=== PATIENT | female | born 1950 | race African-American/Black ===

== ENCOUNTER 2024-01-21 09:41 | Inpatient (IN) | payer OTHER, SELFPAY ==
[2024-01-21] MEDS ORDERED: Bisacodyl 10 MG SUPP PR PRN (12:49)
[2024-01-21] MEDS ORDERED: Senokot S 8.6-50 MG TAB PO PRN (12:49)
[2024-01-21] MEDS ORDERED: Bisacodyl 5 MG TAB PO PRN (12:49)
[2024-01-21] MEDS ORDERED: Acetaminophen 500 MG TAB PO PRN (12:59)
[2024-01-21] MEDS: Gabapentin 300 MG CAP PO SCH (13:32)
[2024-01-21] MEDS: Acetaminophen 500 MG TAB PO SCH (13:33)
[2024-01-21] MEDS: Ondansetron ODT 4 MG TAB PO PRN (13:34)
[2024-01-21] MEDS: traMADol HCl 50 MG TAB PO PRN (14:30)
[2024-01-21] MEDS: Melatonin 3 MG TAB PO SCH (16:32)
[2024-01-21] MEDS: Ibuprofen 200 MG TAB PO SCH (17:23)
[2024-01-21] MEDS: Carvedilol 25 MG TAB PO SCH ×2 (17:29→17:43)
[2024-01-21] MEDS: Famotidine 20 MG TAB PO SCH (20:19)
[2024-01-21] MEDS: Dorzolamide HCl 2% Ophth (10 mL) Bottle EA EYE SCH (20:21)
[2024-01-21] MEDS: prednisoLONE 1% Ophth Susp 5 ml Bottle R EYE SCH (20:22)
[2024-01-21] MEDS: Timolol 0.5% Ophth Soln 5 ml Bottle EA EYE SCH (20:25)
[2024-01-21] MEDS: Brimonidine Tartrate 0.2% Ophth Soln 5 ml Bottle EA EYE SCH (20:29)
[2024-01-21] MEDS: Melatonin 3 MG TAB PO PRN (20:33)
[2024-01-22 06:58] LABS: ALT (SGPT) 15 U/L (8-55); AST (SGOT) 13 U/L (5-34); Albumin 3.6 g/dL (3.4-4.8); Alkaline Phosphatase 73 U/L (40-110); Anion Gap 13 mmol/L (10-20); BUN (Urea Nitrogen) 16 mg/dL (9.8-20.1); Bilirubin, Total 0.9 mg/dL (0.2-1.2); Calc. Creatinine Clearance 87 mL/min (70-130); Calcium 9.8 mg/dL (7.8-10.44); Carbon Dioxide 27 mmol/L (23-31); Chloride 101 mmol/L (98-107); Estimated GFR 83; Globulin 3.2 g/dL (2.4-3.5); Glucose 99 mg/dL (83-110); Potassium 3.5 mmol/L (3.5-5.1); Protein, Total 6.8 g/dL (5.8-8.1); Sodium 137 mmol/L (136-145)
[2024-01-22 07:21] LABS: #Basophils 0.1 thou/uL (0.0-0.2); #Eosinphils 0.3 thou/uL (0.0-0.7); #Lymphocytes 2.3 thou/uL (1.20-3.40); #Monocytes 0.7 thou/uL (0.11-0.59); #Neutrophils 5.7 thou/uL (1.40-6.50); %Basophils 1.6 % (0.0-1.0); %Eosinophils 3.4 % (0.0-10.0); %Lymphocytes 25.1 % (21.0-51.0); %Monocytes 7.6 % (0.0-10.0); %Neutrophils 62.3 % (42.0-75.0); Hemoglobin 12.9 g/dL (12.0-16.0); Mean Corpuscular HGB CONC 31.4 g/dL (32.0-36.0); Mean Corpuscular Hemoglobin 27.3 pg (27.0-31.0); Mean Corpuscular Volume 87.1 fl (78.0-98.0); Mean Platelet Volume 9.2 fL (7.4-10.4); Platelet Adequacy Comment Appears Decreased; Platelet Count 110 10x3/uL (130-400); Red Blood Cell (RBC) Count 4.71 mill/uL (4.20-5.40); White Blood Cell (WBC) Count 9.1 10x3/uL (4.8-10.8)
[2024-01-22] MEDS: Calcium Carbonate 600 MG + Vit D TAB PO SCH (07:52)
[2024-01-22] MEDS ORDERED: Amlodipine 10 MG TAB PO SCH (09:00)
[2024-01-22] MEDS ORDERED: Non-Formulary Item 1 EACH (Losartan Potassium [Losartan Potassium] 100 MG Tablet) PO SCH (09:00)
[2024-01-22] MEDS ORDERED: Lidocaine 4% Patch TP SCH (09:00)
[2024-01-22] MEDS: Lidocaine 4% Patch TD SCH (09:47)
[2024-01-22] MEDS: Amlodipine 10 MG TAB PO SCH (09:58)
[2024-01-22] MEDS: Enoxaparin 40 MG (0.4 mL) SYRINGE SC SCH (09:59)
[2024-01-22] MEDS: Polyethylene Glycol 3350 17 GM Packet PO SCH ×2 (09:59→20:25)
[2024-01-22] MEDS: Losartan 50 MG TAB PO SCH (13:20)
[2024-01-22] MEDS ORDERED: Acetaminophen 500 MG TAB PO SCH (14:00)
[2024-01-22] MEDS: Losartan 50 MG TAB ONE (14:12)
[2024-01-22] MEDS: Acetaminophen 500 MG TAB PO SCH (16:36)
[2024-01-22] MEDS: Transdermal Patch Removal TOP SCH (20:32)
[2024-01-23] MEDS: HYDROcodone/Acetaminophen 5/325 mg Tablet PO PRN (14:57)
[2024-01-24 05:59] LABS: #Basophils 0.1 thou/uL (0.0-0.2); #Eosinphils 0.2 thou/uL (0.0-0.7); #Lymphocytes 2.3 thou/uL (1.20-3.40); #Monocytes 0.8 thou/uL (0.11-0.59); #Neutrophils 5.4 thou/uL (1.40-6.50); %Basophils 0.8 % (0.0-1.0); %Eosinophils 2.4 % (0.0-10.0); %Lymphocytes 26.1 % (21.0-51.0); %Monocytes 8.8 % (0.0-10.0); %Neutrophils 61.9 % (42.0-75.0); Hematocrit 41.3 % (36.0-47.0); Hemoglobin 13.4 g/dL (12.0-16.0); Mean Corpuscular HGB CONC 32.4 g/dL (32.0-36.0); Mean Corpuscular Volume 86.4 fl (78.0-98.0); Mean Platelet Volume 8.6 fL (7.4-10.4); Platelet Count 137 10x3/uL (130-400); RBC Distribution Width 11.9 % (11.5-14.5); Red Blood Cell (RBC) Count 4.78 mill/uL (4.20-5.40); White Blood Cell (WBC) Count 8.8 10x3/uL (4.8-10.8)
[2024-01-25] MEDS: HYDROcodone/Acetaminophen 5/325 mg Tablet PO PRN (08:16)
[2024-01-26 14:16] LABS: Bilirubin Negative (Negative); Blood, Urine Negative (Negative); Clarity Clear (Clear); Glucose, Urine (Dipstick) Negative (Negative); Ketone, Urine Negative (Negative); Leukocyte Negative (Negative); Nitrite Negative (Negative); Protein, Urine (Dipstick) 100 mg/dL (Neg-Trace)
[2024-01-26 14:24] LABS: Urine Culture Reflex No No
[2024-01-26 14:41] LABS: CAUTI Indications for Culture Dysuria,urgency,freq; Squamous Epithelial 0-3 HPF (0-3); WBC/HPF 0-3 HPF (0-3)
[2024-01-27] MEDS: Methocarbamol 500 MG TAB PO PRN (16:49)
[2024-01-31 06:17] LABS: #Basophils 0.1 thou/uL (0.0-0.2); #Eosinphils 0.3 thou/uL (0.0-0.7); #Lymphocytes 2.3 thou/uL (1.20-3.40); #Monocytes 0.8 thou/uL (0.11-0.59); #Neutrophils 6.2 thou/uL (1.40-6.50); %Basophils 1.2 % (0.0-1.0); %Eosinophils 2.7 % (0.0-10.0); %Lymphocytes 23.7 % (21.0-51.0); %Monocytes 7.8 % (0.0-10.0); %Neutrophils 64.5 % (42.0-75.0); Hematocrit 40.3 % (36.0-47.0); Hemoglobin 12.8 g/dL (12.0-16.0); Mean Corpuscular HGB CONC 31.7 g/dL (32.0-36.0); Mean Corpuscular Hemoglobin 27.9 pg (27.0-31.0); Mean Corpuscular Volume 87.8 fl (78.0-98.0); Mean Platelet Volume 7.6 fL (7.4-10.4); Platelet Count 208 10x3/uL (130-400); RBC Distribution Width 12.2 % (11.5-14.5); White Blood Cell (WBC) Count 9.7 10x3/uL (4.8-10.8)
[2024-01-31 06:25] LABS: ALT (SGPT) 12 U/L (8-55); AST (SGOT) 10 U/L (5-34); Albumin 3.5 g/dL (3.4-4.8); Alkaline Phosphatase 114 U/L (40-110); Anion Gap 12 mmol/L (10-20); BUN (Urea Nitrogen) 13 mg/dL (9.8-20.1); Bilirubin, Total 0.7 mg/dL (0.2-1.2); Calc. Creatinine Clearance 109 mL/min (70-130); Calcium 9.9 mg/dL (7.8-10.44); Carbon Dioxide 29 mmol/L (23-31); Chloride 101 mmol/L (98-107); Estimated GFR 95; Globulin 2.9 g/dL (2.4-3.5); Glucose 93 mg/dL (83-110); Potassium 3.5 mmol/L (3.5-5.1); Protein, Total 6.4 g/dL (5.8-8.1); Sodium 138 mmol/L (136-145)
[2024-01-31] MEDS: Ibuprofen 200 MG TAB ONE ×2 (12:28→17:29)
[2024-01-31] MEDS: valACYclovir 500 MG TAB PO SCH (15:57)
[2024-02-01] MEDS: Ibuprofen 200 MG TAB ONE (07:55)
[2024-02-01] MEDS: HYDROcodone/Acetaminophen 5/325 mg Tablet PO PRN (20:50)
[2024-02-03] MEDS: Gabapentin 300 MG CAP PO SCH (09:16)
[2024-02-03 09:48] VITALS: BMI 27.3
[2024-02-05 06:46] LABS: #Basophils 0.1 thou/uL (0.0-0.2); #Eosinphils 0.2 thou/uL (0.0-0.7); #Lymphocytes 2.3 thou/uL (1.20-3.40); #Monocytes 0.7 thou/uL (0.11-0.59); #Neutrophils 6.6 thou/uL (1.40-6.50); %Eosinophils 1.8 % (0.0-10.0); %Lymphocytes 23.7 % (21.0-51.0); %Monocytes 6.6 % (0.0-10.0); Hemoglobin 12.5 g/dL (12.0-16.0); Mean Corpuscular HGB CONC 32.8 g/dL (32.0-36.0); Mean Corpuscular Hemoglobin 28.5 pg (27.0-31.0); Mean Platelet Volume 7.4 fL (7.4-10.4); Platelet Count 227 10x3/uL (130-400); RBC Distribution Width 12.6 % (11.5-14.5); Red Blood Cell (RBC) Count 4.36 mill/uL (4.20-5.40); White Blood Cell (WBC) Count 9.9 10x3/uL (4.8-10.8)
[2024-02-05 07:01] LABS: ALT (SGPT) 13 U/L (8-55); AST (SGOT) 12 U/L (5-34); Albumin 3.6 g/dL (3.4-4.8); Alkaline Phosphatase 141 U/L (40-110); Anion Gap 10 mmol/L (10-20); BUN (Urea Nitrogen) 22 mg/dL (9.8-20.1); Bilirubin, Total 0.8 mg/dL (0.2-1.2); Calc. Creatinine Clearance 96 mL/min (70-130); Calcium 10.1 mg/dL (7.8-10.44); Carbon Dioxide 30 mmol/L (23-31); Chloride 100 mmol/L (98-107); Estimated GFR 92; Glucose 113 mg/dL (83-110); Potassium 3.4 mmol/L (3.5-5.1); Protein, Total 6.6 g/dL (5.8-8.1); Sodium 137 mmol/L (136-145)
[2024-02-05] MEDS: Potassium Chloride 20 MEQ TAB PO SCH (13:42)
[2024-02-05 19:31] VITALS: TEMP 98.1
[2024-02-06 05:44] VITALS: BMI 257017.3
[2024-02-06 07:20] LABS: Anion Gap 11 mmol/L (10-20); BUN (Urea Nitrogen) 21 mg/dL (9.8-20.1); Calc. Creatinine Clearance 88 mL/min (70-130); Calcium 10.1 mg/dL (7.8-10.44); Carbon Dioxide 27 mmol/L (23-31); Chloride 102 mmol/L (98-107); Estimated GFR 89; Glucose 90 mg/dL (83-110); Magnesium 1.9 mg/dL (1.6-2.6); Potassium 3.3 mmol/L (3.5-5.1); Sodium 137 mmol/L (136-145)
[2024-02-06 07:52] VITALS: BP 168/77
[2024-02-06] MEDS: Potassium Chloride 20 MEQ TAB PO SCH (13:09)
[2024-02-06] MEDS: Magnesium Chloride 64 MG TAB PO SCH (13:09)
== END 2024-02-06 16:55 | disposition home or self-care (01) | DRG 561 ==
LOC: NAV ACUTE 12:36
PROVIDERS: ADMIT Student in an Organized Health Care Education/Training Program; ATTEND Student in an Organized Health Care Education/Training Program
DX: S32.10XD Unspecified fracture of sacrum, subsequent encounter for fracture with routine healing (principal); S32.019D Unspecified fracture of first lumbar vertebra, subsequent encounter for fracture with routine healing; R53.81 Other malaise; I10 Essential (primary) hypertension; G47.00 Insomnia, unspecified; K59.00 Constipation, unspecified; H26.9 Unspecified cataract; F41.9 Anxiety disorder, unspecified; F32.A Depression, unspecified; M19.90 Unspecified osteoarthritis, unspecified site; D69.6 Thrombocytopenia, unspecified; B02.9 Zoster without complications; E87.6 Hypokalemia; Z79.899 Other long term (current) drug therapy; Z90.710 Acquired absence of both cervix and uterus; Z98.890 Other specified postprocedural states; Z82.49 Family history of ischemic heart disease and other diseases of the circulatory system; Z88.1 Allergy status to other antibiotic agents; Z88.5 Allergy status to narcotic agent
CPT/HCPCS: 36415; 80048; 80053; 81001; 83735; 85025; J1650; Q0162